=== PATIENT | male | born 1965 | race Two or more races ===

== ENCOUNTER → 2017-02-12 | Outpatient (CLI) | payer OTHER ==
[~2017-02-12] VITALS: Ht 172.7 cm; Wt 122.0 kg
== END | disposition home or self-care (01) ==
LOC: Rad HDHVI 14:27
PROVIDERS: ATTEND Internal Medicine Cardiovascular Disease
DX: Z01.810 Encounter for preprocedural cardiovascular examination (principal); I45.10 Unspecified right bundle-branch block; M17.10 Unilateral primary osteoarthritis, unspecified knee
CPT/HCPCS: 78452; 93017; 93306; 96374; A9500